=== PATIENT | female | born 2000 | race Caucasian/White ===

== ENCOUNTER 2024-03-20 22:02 | Observation (INO) | payer OTHER ==
[~2024-03-20] VITALS: Ht 162.6 cm; Wt 65.1 kg
[2024-03-20 22:46] VITALS: BP 128/82; PULSE 83; TEMP 98.5
[2024-03-20] MEDS ORDERED: M-NATAL PLUS T1 EACH PO (22:50)
--- NOTE | 2024-03-20 23:17 | NUR ---
patient arrived around 2244 via EMS from [facility], alert and oriented x4. denies chest pain and shortness of breath. denies ABD pain currently, reports that is "comes and goes". no remarkable skin findings noted. NPO status educated, pt verbally understood. pt has no further needs, questions, or concerns at this time. ambulates with steady gait, call light wtihin reach. will continue to monitor.
[2024-03-20 23:34] VITALS: BP 101/65; PULSE 73; TEMP 98.5
[2024-03-20] MEDS ORDERED: Ondansetron 4 MG/2 ML VIAL IV PRN (23:45)
[2024-03-20] MEDS ORDERED: LR 1,000 ML IV SCH (23:45)
[2024-03-20] MEDS ORDERED: Acetaminophen 325 MG TAB PO PRN (23:45)
[2024-03-21] VITALS (12 sets, daily range): BP systolic 101–124; BP diastolic 65–82; PULSE 61–82; TEMP 97.6–98.5
[2024-03-21 06:47] LABS: BASO # 0.1 K/mm3 (0.0-0.2); BASO % 0.8 % (0.0-2.0); EOS # 0.1 K/mm3 (0.0-0.7); EOS % 1.4 % (0.0-4.0); GRAN # 4.4 K/mm3 (1.4-6.5); GRAN % 59.7 % (42.2-75.2); HEMOGLOBIN 11.2 g/dl (12.5-16.0); LYMPH # 2.2 K/mm3 (1.2-3.4); LYMPH % 30.7 % (20.0-51.0); MEAN CELL VOLUME 91 fl (80.0-100.0); MEAN CORPUSCULAR HEMOGLOBIN 31 pg (27-31); MEAN CORPUSCULAR HGB CONC 34 g/dl (33.0-37.0); MEAN PLATELET VOLUME 9.8 fl (7.4-10.4); MONO # 0.5 K/mm3 (0.1-0.6); MONO % 7.1 % (1.7-9.3); PLATELET COUNT 370 K/mm3 (130-400); RED BLOOD COUNT 3.61 M/mm3 (4.10-5.30); REDCELL DISTRIBUTION WIDTH-CV 12.4 % (11.5-14.5)
[2024-03-21 06:50] LABS: HEMATOCRIT 32.8 % (37.0-47.0)
[2024-03-21 06:58] LABS: ALBUMIN 3.6 g/dL (3.5-5.0); BILIRUBIN,TOTAL 2.2 mg/dL (0.2-1.2); CALCIUM 8.1 mg/dL (8.4-10.2); CREATININE, serum 0.69 mg/dL (0.57-1.11)
--- NOTE | 2024-03-21 08:55 | NUR ---
patient alert and oriented x4. patient denies pain just laying down, but some epigastric pain when pressed lightly. patient denies nausea/vomiting at this time. call light within reach. bed at lowest position.
[2024-03-21] MEDS ORDERED: LR 1,000 ML IV SCH (10:00)
[2024-03-21] MEDS ORDERED: Lidocaine PF 2% (20 MG/ML) 5 ML VIAL ONE (10:54)
[2024-03-21] MEDS ORDERED: Iohexol 350 - 100 ML VIAL BILE DUCT ONE (11:09)
[2024-03-21] MEDS ORDERED: Ondansetron 4 MG/2 ML VIAL IV ONE (11:20)
--- NOTE | 2024-03-21 13:05 | NUR ---
SW met with patient to complete initial assessment for discharge planning. Patient verified that she lives on [address] with her Neville ([phone]) and their three week old son. She uses [facility] for medical care and pharmacy. Patient is independent and denies having a DPOA assigned. She declined to complete one at this time. Patient will discharge to home with her family when medically stable. Discharge plan: Home
[2024-03-21] MEDS ORDERED: Morphine 4 MG/ML VIAL IV ONE (19:15)
--- NOTE | 2024-03-21 22:46 | NUR ---
UPON ENTERING ROOM, PATIENT IS RESTING IN BED WITH EYES CLOSED. REPORTS PAIN IN HER ABDOMEN IS CURRENTLY 3/10 AND DENIES ANY NAUSEA AT TIME OF ASSESSMENT BUT HAS BEEN HAVING SOME OFF AND ON THROUGH THE DAY AND EVENING. CALL LIGHT IS WITHIN REACH. BED LOCKED AND IN LOW POSITION.
[2024-03-22] VITALS (11 sets, daily range): BP systolic 116–126; BP diastolic 76–82; PULSE 76–112; TEMP 98.1–100
--- NOTE | 2024-03-22 07:14 | NUR ---
appears to be dozing, bedside shift report received from DYLAN Méndez
[2024-03-22 07:15] LABS: ALBUMIN 3.3 g/dL (3.5-5.0); CALCIUM 8.6 mg/dL (8.4-10.2); CREATININE, serum 0.72 mg/dL (0.57-1.11); POTASSIUM 3.5 mEq/L (3.5-4.5); TOTAL PROTEIN 5.6 g/dl (6.2-8.1)
[2024-03-22 07:26] LABS: BASO # 0.1 K/mm3 (0.0-0.2); BASO % 0.4 % (0.0-2.0); EOS # 0.1 K/mm3 (0.0-0.7); EOS % 1.1 % (0.0-4.0); GRAN # 8.8 K/mm3 (1.4-6.5); GRAN % 76.7 % (42.2-75.2); HEMOGLOBIN 10.9 g/dl (12.5-16.0); LYMPH # 1.8 K/mm3 (1.2-3.4); LYMPH % 15.5 % (20.0-51.0); MEAN CELL VOLUME 92 fl (80.0-100.0); MEAN CORPUSCULAR HEMOGLOBIN 31 pg (27-31); MEAN CORPUSCULAR HGB CONC 33 g/dl (33.0-37.0); MEAN PLATELET VOLUME 10.2 fl (7.4-10.4); MONO # 0.7 K/mm3 (0.1-0.6); PLATELET COUNT 350 K/mm3 (130-400); RED BLOOD COUNT 3.53 M/mm3 (4.10-5.30); REDCELL DISTRIBUTION WIDTH-CV 12.7 % (11.5-14.5)
[2024-03-22 07:28] LABS: HEMATOCRIT 32.6 % (37.0-47.0)
--- NOTE | 2024-03-22 07:56 | NUR ---
awakened and full assessment completed, see interventions for further info, prepped for surgery, denies needs, is pumping before surgery
[2024-03-22] MEDS ORDERED: Indocyanine Green 6.25 MG in Water For Injection,Sterile 1.25 ML IV SCH (08:00)
[2024-03-22] MEDS ORDERED: LR 1,000 ML IV SCH (08:00)
--- NOTE | 2024-03-22 09:00 | NUR ---
to sourgery per bed
[2024-03-22] MEDS ORDERED: Midazolam 2 MG/2 ML VIAL ONE (09:16)
[2024-03-22] MEDS ORDERED: Lidocaine PF 2% (20 MG/ML) 5 ML VIAL ONE (09:16)
[2024-03-22] MEDS ORDERED: fentaNYL 50 MCG/ML 2 ML VIAL ONE ×2 (09:16→10:14)
[2024-03-22] MEDS ORDERED: Rocuronium 50 MG/5 ML Multi-Dose VIAL ONE (09:16)
[2024-03-22] MEDS ORDERED: Ketorolac 30 MG/ML VIAL ONE ×2 (09:16→09:38)
[2024-03-22] MEDS ORDERED: Ondansetron 4 MG/2 ML VIAL ONE (09:16)
[2024-03-22] MEDS ORDERED: fentaNYL 50 MCG/ML 1 ML SYRINGE/VIAL [PACU/SDC ONLY] IV PRN (10:30)
[2024-03-22] MEDS ORDERED: droPERidol 2.5 MG/ML 2 ML VIAL IV PRN (10:30)
[2024-03-22] MEDS ORDERED: Meperidine 50 MG/ML 1 ML VIAL IV PRN (10:30)
[2024-03-22] MEDS ORDERED: HYDROmorphone 1 MG/1 ML SYRINGE [PACU/SDC ONLY] IV PRN (10:30)
[2024-03-22] MEDS ORDERED: Ondansetron 4 MG/2 ML VIAL IV PRN (10:30)
[2024-03-22] MEDS ORDERED: hydrALAZINE 20 MG/ML 1 ML VIAL IV PRN (10:30)
[2024-03-22] MEDS ORDERED: oxyCODONE/Acetaminophen 5-325 MG TAB PO PRN (10:45)
--- NOTE | 2024-03-22 11:25 | NUR ---
returned from PACU per bed, awake and alert, IVR infused and to INT, abdomen with 4 robotic sites with bandaids CD&I, denies pain or nausea,
[2024-03-22] MEDS ORDERED: PERCOCET 325 MG1 TA2 PO (11:31)
[2024-03-22] MEDS ORDERED: ZOFRAN ODT4 MG PO (11:44)
--- NOTE | 2024-03-22 11:45 | NUR ---
taking sips of water and tolerates well, given pudding per her request, instructed to call when needs up to bathroom the first time, verbalizes understanding
--- NOTE | 2024-03-22 12:00 | NUR ---
restingin bed denies needs
--- NOTE | 2024-03-22 12:20 | NUR ---
bedise shift report given to CHEVY Salgado
--- NOTE | 2024-03-22 15:39 | NUR ---
Discharge education reviewed with the patient. Patient verbalized an understanding to follow doctors orders. IV removed, tip intact. Gauze and marcio applied. Patient taken by wheelchair to awaiting vehicle. No further needs expressed.
== END 2024-03-22 15:39 | disposition home or self-care (01) ==
LOC: SURG 22:02 → MEDICAL 22:37
PROVIDERS: Physician Assistant; ADMIT Internal Medicine
DX: K80.42 Calculus of bile duct with acute cholecystitis without obstruction (principal); K21.9 Gastro-esophageal reflux disease without esophagitis; Z79.899 Other long term (current) drug therapy
CPT/HCPCS: C1769; G0378; G0379; J0690; J1885; J2250; J2270; J2405; J2704; J3010; J7120; Q9967